=== PATIENT | male | born 1965 | race Caucasian/White ===

== ENCOUNTER 2019-10-29 17:53 | Emergency (ER) | payer BC ==
[2019-10-29] MEDS ORDERED: LIDOCAINE 1% MPF 30 ML VIAL ONE (19:20)
[2019-10-29] MEDS ORDERED: HYDROCODONE/APAP 7.5/325 MG TAB ONE (19:20)
[2019-10-29] MEDS ORDERED: BUPIVACAINE 0.5% PF 10 ML VIAL ONE (19:20)
--- NOTE | 2019-10-29 19:28 | RAD REPORT ---
EXAM DESCRIPTION: RAD - Hand Right 3 View - 10/29/2019 7:19 pm CLINICAL HISTORY: right thumb laceration;Pain;Smash injury COMPARISON: No comparisons FINDINGS: Soft tissue swelling with mild soft tissue air seen involving the first digit. No fracture or radiopaque foreign body is evident.
[2019-10-29 21:35] VITALS: BP 155/94; TEMP 99.3; O2SAT 97
--- NOTE | 2019-10-31 18:18 | EDPHYS ---
Physician Documentation [facility] Name: Jordon Valentino Age: 53 yrs Sex: Male : 1965 Arrival Date: 10/29/2019 Time: 17:54 Bed 11 Private MD: ED Physician Tera Vargas HPI: 10/28 19:15 This 53 yrs old Male presents to ER via Ambulatory with complaints of Finger cp Injury, Laceration, Hand Injury. 19:15 The patient or guardian reports injury, a laceration, pain, tenderness. The complaints cp affect the right thumb and web space of right thumb and right index finger. 19:15 Context: resulted from a crush injury, hand got caught between boat and dock. cp 19:15 Onset: The symptoms/episode began/occurred just prior to arrival. Associated signs and cp symptoms: Pertinent negatives: cyanosis distally, numbness distally. Historical: - Allergies: 18:05 Morphine; em - PMHx: 18:05 Hypertension; Myocardial infarction; em - PSHx: 18:05 Heart stents; triple bypass; Appendectomy; em - Immunization history:: Adult Immunizations up to date. - Social history:: Smoking status: Patient denies any tobacco usage or history of. ROS: 19:30 MS/extremity: Positive for injury or acute deformity, laceration, pain, of the right cp hand, Negative for decreased range of motion, paresthesias. 19:30 Constitutional: Negative for body aches, chills, fever. cp 19:30 Neck: Negative for pain with movement, pain at rest, stiffness. 19:30 Respiratory: Negative for cough, shortness of breath. 19:30 Abdomen/GI: Negative for abdominal pain, nausea, vomiting, and diarrhea. 19:30 Back: Negative for pain at rest, pain with movement. 19:30 Neuro: Negative for numbness, weakness. 19:30 All other systems are negative. Exam: 19:35 Constitutional: The patient appears in no acute distress, alert, awake, cp non-diaphoretic, non-toxic, well developed, well nourished. 19:35 Musculoskeletal/extremity: Extremities: grossly normal except: noted in the right thumb cp and web space of right thumb and right index finger: laceration, pain, There is no evidence of decreased ROM, ROM: full active range of motion, in the right thumb, Perfusion: the extremity is normally perfused throughout, Sensation intact. Tendon exam: specific tendon testing normal through active and passive range of motion 2 point discrimination intact right thumb. Vital Signs: 18:02 BP 155 / 94; Pulse 97; Resp 18; Temp 99.3; Pulse Ox 97% on R/A; Weight 78.02 kg; Height em 5 ft. 6 in. (167.64 cm); Pain 10/10; 18:02 Body Mass Index 27.76 (78.02 kg, 167.64 cm) em Procedures: 21:25 Splinting: Splint applied to right thumb using thumb spica type splint. applied by cp nurse. Examined by me, post splint application: neurovascular intact, Patient tolerated well. Laceration: 21:21 Wound Repair of 9cm ( 3.5in ) subcutaneous laceration to right thumb. Linear shaped.. cp Distal neuro/vascular/tendon intact. Anesthesia: Wound infiltrated with 10 mls of Lido/Marcaine. Wound prep: Moderate cleansing by me, Wound irrigation by me. Skin closed with 18 4-0 Prolene using simple sutures and sterile technique. Dressed with Bacitracin, 4x4's. Patient tolerated well. MDM: 18:57 Patient medically screened. cp 21:23 Data reviewed: vital signs, nurses notes, radiologic studies, plain films, and as a cp result, I will discharge patient. 21:23 Counseling: I had a detailed discussion with the patient and/or guardian regarding: the cp historical points, exam findings, and any diagnostic results supporting the discharge/admit diagnosis, radiology results, to return to the emergency department if symptoms worsen or persist or if there are any questions or concerns that arise at home. Response to treatment: the patient's symptoms have markedly improved after treatment. 10/28 19:05 Order name: XRAY Hand RIGHT 3 View; Complete Time: 19:50 10/28 19:50 Interpretation: Report reviewed. 10/28 19:05 Order name: Dressing - Wound; Complete Time: 19:16 cp 10/28 19:05 Order name: Gloves, Sterile; Complete Time: 19:16 cp 10/28 19:05 Order name: Setup Suture Tray; Complete Time: 19:16 cp 10/28 21:18 Order name: Splint: thumb spica; Complete Time: 21:29 cp 10/28 21:18 Order name: Wound dressing; Complete Time: : cp Administered Medications: 19:14 Drug: Hydrocodone-Acetaminophen (7.5 mg-325 mg) 1 tabs Route: PO; sg 21:29 Follow up: Response: No adverse reaction; Marked relief of symptoms; RASS: Alert and rv Calm (0) 19:16 Drug: Lidocaine (1 %) 10 ml {Note: medication administered by GEE PA.} Volume: 20 sg ml; Route: Infiltration; 21:29 Follow up: Response: No adverse reaction rv 19:17 Drug: Marcaine (0.5 %) 10 ml {Note: medication administered by CPRAKASH PA.} Volume: 10 sg ml; Route: Infiltration; 21:29 Follow up: Response: No adverse reaction rv Disposition: 21:35 Chart complete. 10/29 14:34 Co-signature as Attending Physician, Tera Vargas MD I agree with the assessment and kdr plan of care. Disposition: 10/29/19 21:24 Discharged to Home. Impression: Laceration without foreign body of right thumb without damage to nail. - Condition is Stable. - Discharge Instructions: Laceration Care, Adult. - Prescriptions for Tramadol 50 mg Oral Tablet - take 1 tablet by ORAL route every 8 hours as needed; 12 tablet. Doxycycline Monohydrate 100 mg Oral Tablet - take 1 tablet by ORAL route every 12 hours for 10 days; 20 tablet. - Medication Reconciliation Form, Thank You Letter, Antibiotic Education, Prescription Opioid Use form. - Follow up: Private Physician; When: 10 - 14 days; Reason: Staple/Suture removal. - Problem is new. - Symptoms have improved. Signatures: Dispatcher [employer] Nicanor Ramesh RN RN Tera Vargas MD MD kdr Munoz, Edgar, RN RN Madhav Lake PA PA cp Kobe Fuentes RN RN rv Corrections: (The following items were deleted from the chart) 10/28 21: 21:21 Wound Repair of 9cm ( 3.5in ) subcutaneous laceration to right hand. Linear cp shaped.. Distal neuro/vascular/tendon intact. Anesthesia: Wound infiltrated with 10 mls of Lido/Marcaine. Wound prep: Moderate cleansing by me, Wound irrigation by me. Skin closed with 18 4-0 Prolene using simple sutures and sterile technique. Dressed with Bacitracin, 4x4's. Patient tolerated well. cp 21:30 21:24 10/29/2019 21:24 Discharged to Home. Impression: Laceration without foreign body rv of right thumb without damage to nail. Condition is Stable. Forms are Medication Reconciliation Form, Thank You Letter, Antibiotic Education, Prescription Opioid Use. Follow up: Private Physician; When: 10 - 14 days; Reason: Staple/Suture removal. Problem is new. Symptoms have improved. cp
--- NOTE | 2019-10-31 18:18 | ER ---
Nurse's Notes [facility] Name: Jordon Valentino Age: 53 yrs Sex: Male : 1965 Arrival Date: 10/29/2019 Time: 17:54 Bed 11 Private MD: Diagnosis: Laceration without foreign body of right thumb without damage to nail Presentation: 10/28 18:02 Chief complaint: Patient states: got right hand/thumb smashed between a boat and dock em about 45 min. ago, pt reports open wound, pt wrapped [employer]. Coronavirus screen: Proceed with normal triage. Patient denies a cough. Patient denies shortness of breath or difficulty breathing. Patient denies measured and/or subjective temperature greater than 100.4F prior to today's visit. Patient denies travel on a cruise ship or to a country the [facility] currently lists as an affected area. Patient denies contact with known and/or suspected case of COVID-19. Ebola Screen: Patient negative for fever greater than or equal to 101.5 degrees Fahrenheit, and additional compatible Ebola Virus Disease symptoms Patient denies exposure to infectious person. Patient denies travel to an Ebola-affected area in the 21 days before illness onset. No symptoms or risks identified at this time. Initial Sepsis Screen: Does the patient meet any 2 criteria? HR > 90 bpm. Does the patient have a suspected source of infection? Yes: Skin breakdown/wound. Risk Assessment: Do you want to hurt yourself or someone else? Patient reports no desire to harm self or others. Onset of symptoms was October 29, 2019. 18:02 Method Of Arrival: Ambulatory em 18:02 Acuity: HODA 4 em Triage Assessment: 20:26 General: Appears comfortable, Behavior is calm, cooperative. rv Historical: - Allergies: 18:05 Morphine; em - PMHx: 18:05 Hypertension; Myocardial infarction; em - PSHx: 18:05 Heart stents; triple bypass; Appendectomy; em - Immunization history:: Adult Immunizations up to date. - Social history:: Smoking status: Patient denies any tobacco usage or history of. Screenin:26 Abuse screen: Denies threats or abuse. Denies injuries from another. Nutritional rv screening: No deficits noted. Tuberculosis screening: No symptoms or risk factors identified. Fall Risk None identified. Assessment: 20:24 Reassessment: Patient and/or family updated on plan of care and expected duration. Pain rv level reassessed. Patient is alert, oriented x 3, equal unlabored respirations, skin warm/dry/pink. Pain: Complains of pain in right hand. Musculoskeletal: Swelling absent. 20:25 Neuro: Level of Consciousness is awake, alert, obeys commands, Oriented to person, rv place, time, situation. Cardiovascular: Patient's skin is warm and dry. Derm:. Injury Description: Laceration sustained to right hand is clean, 2.6 to 7.5 cm long. Vital Signs: 18:02 BP 155 / 94; Pulse 97; Resp 18; Temp 99.3; Pulse Ox 97% on R/A; Weight 78.02 kg; Height em 5 ft. 6 in. (167.64 cm); Pain 10/10; 18:02 Body Mass Index 27.76 (78.02 kg, 167.64 cm) em ED Course: 17:54 Patient arrived in ED. ag5 18:05 Triage completed. em 18:05 Arm band placed on. em 18:54 Madhav Willett PA is PHCP. cp 18:54 Tera Vargas MD is Attending Physician. cp 18:56 Nicanor Mann, AIDA is Primary Nurse. sg 19:21 XRAY Hand RIGHT 3 View In Process Unspecified. EDMS 20:26 Patient has correct armband on for positive identification. rv 20:26 Assist provider with laceration repair on right hand thumb that was 2.5 cm. or less rv using sutures. Set up tray. Performed by Madhav REYNOSO Dressed with 4X4s, Patient tolerated well. 20:27 Patient did not have IV access during this emergency room visit. rv Administered Medications: 19:14 Drug: Hydrocodone-Acetaminophen (7.5 mg-325 mg) 1 tabs Route: PO; sg 21:29 Follow up: Response: No adverse reaction; Marked relief of symptoms; RASS: Alert and rv Calm (0) 19:16 Drug: Lidocaine (1 %) 10 ml {Note: medication administered by GEE HUSSEIN} Volume: 20 sg ml; Route: Infiltration; 21:29 Follow up: Response: No adverse reaction rv 19:17 Drug: Marcaine (0.5 %) 10 ml {Note: medication administered by C.PAGE PA.} Volume: 10 sg ml; Route: Infiltration; :29 Follow up: Response: No adverse reaction rv Outcome: 21:24 Discharge ordered by . genevieve 21: Discharged to home ambulatory. rv : Condition: improved 21: Discharge instructions given to patient, Instructed on discharge instructions, follow up and referral plans. medication usage, wound care, Demonstrated understanding of instructions, follow-up care, medications, wound care, Prescriptions given X 2. 21:30 Patient left the ED. rv Signatures: Dispatcher [employer] Nicanor Ramesh RN RN sg Munoz, Edgar RN RN em Madhav Willett PA PA Kobe Russell RN RN rv Reny Tang ag5 Corrections: (The following items were deleted from the chart) 21:04 20:25 Injury Description: Laceration sustained to right hand is clean, 0.5 to 2.5 cm rv long, rv
== END 2019-10-29 21:30 | disposition home or self-care (01) ==
LOC: ER 17:53
PROC: 0JQJ0ZZ Repair Right Hand Subcutaneous Tissue and Fascia, Open Approach (ICD-10-PCS; principal; 2019-10-29)
DX: S61.011A Laceration without foreign body of right thumb without damage to nail, initial encounter (principal); W23.0XXA Caught, crushed, jammed, or pinched between moving objects, initial encounter; Y93.9 Activity, unspecified; Y92.89 Other specified places as the place of occurrence of the external cause; I10 Essential (primary) hypertension; Z88.5 Allergy status to narcotic agent; Z95.1 Presence of aortocoronary bypass graft; Z95.818 Presence of other cardiac implants and grafts
CPT/HCPCS: 99284